=== PATIENT | male | born 1980 | race Two or more races ===

== ENCOUNTER 2020-06-22 16:11 | Emergency (ER) | payer SELFPAY ==
[~2020-06-22] VITALS: Ht 175.3 cm; Wt 100.0 kg
[2020-06-22 16:47] VITALS: BP 166/101
[2020-06-22] MEDS ORDERED: PRED20TA PO (16:52)
[2020-06-22] MEDS ORDERED: ACYC800T PO (16:52)
[2020-06-22] MEDS ORDERED: PEG15DRO4 RIGHTEYE (16:52)
--- NOTE | 2020-06-22 16:52 | PHYS DOC ---
Past Medical History Past Medical History: Hypertension Drug Use: None General Adult EDM: Chief Complaint: Facial weakness HPI: HPI: Patient is a 39 year old male who presents with a 2-day history of right-sided facial numbness periorbital numbness and right-sided facial weakness. Patient denies any weakness in his arms leg. He does complain of mild right ear pain and right-sided occipital headache. Patient denies any fevers, chills, cough, vomiting, diarrhea. Patient says he is having hard time closing his right eye. Review of Systems: Review of Systems: Constitutional: Denies fever or chills. [] Eyes: Denies change in visual acuity. [] HENT: Denies nasal congestion or sore throat. [] Respiratory: Denies cough or shortness of breath. [] Cardiovascular: Denies chest pain or edema. [] GI: Denies abdominal pain, nausea, vomiting, bloody stools or diarrhea. [] : Denies dysuria. [] Musculoskeletal: Denies back pain or joint pain. [] Integument: Denies rash. [] Neurologic: Has a mild right-sided headache and right facial weakness/numbness otherwise no other neurological complaints Endocrine: Denies polyuria or polydipsia. [] Lymphatic: Denies swollen glands. [] Psychiatric: Denies depression or anxiety. [] Heart Score: Risk Factors: Risk Factors: DM, Current or recent (<one month) smoker, HTN, HLP, family history of CAD, obesity. Risk Scores: Score 0 - 3: 2.5% MACE over next 6 weeks - Discharge Home Score 4 - 6: 20.3% MACE over next 6 weeks - Admit for Clinical Observation Score 7 - 10: 72.7% MACE over next 6 weeks - Early Invasive Strategies Physical Exam: PE: Constitutional: Well developed, well nourished, no acute distress, non-toxic appearance. HENT: No trismus, external ears normal Eyes: Conjunctiva clear, EOMI Neck: Normal range of motion, no tenderness, supple, no stridor. Cardiovascular: Regular rate/rhythm, peripheral pulse intact, SWITCH ENGINEER intact Lungs & Thorax: No respiratory distress Abdomen: No distension Skin: Diffuse: Intact, no rash Back: Full ROM Extremities: Normal inspection, no edema Neurologic: Alert and oriented X 3, right-sided facial weakness involving forehead. Decreased incision right side of face motor and sensation intact in all extremities Psychologic: Affect normal, judgement normal, mood normal. EKG: EKG: [] Radiology/Procedures: Radiology/Procedures: [] Course & Med Decision Making: Course & Med Decision Making Pertinent Labs and Imaging studies reviewed. (See chart for details) [] Signs and systems consistent with Jerez's palsy no evidence of stroke. Patient clinically stable. Will place him on steroids and antivirals as well as artificial tears. Dragon Disclaimer: Reginald Disclaimer: This electronic medical record was generated, in whole or in part, using a voice recognition dictation system. Departure Departure Impression: Primary Impression: Jerez's palsy Disposition: HOME, SELF-CARE Condition: STABLE Referrals: NO PCP (PCP) PCP 2-3 DAYS Patient Instructions: Jerez's Palsy Additional Instructions: EMERGENCY DEPARTMENT GENERAL DISCHARGE INSTRUCTIONS Thank you for coming to [facility] Emergency Department (ED) today and trusting us with you care. We trust that you had a positivie experience in our Emergency Department. If you wish to speak to the department management, you may call the Director at [phone]. YOUR FOLLOW UP INSTRUCTIONS ARE FOLLOWS: 1. Do you have a private Doctor? If you do not have a private doctor, please ask for a resource list of physicians or clinics that may be able to assist you with follow up care. 2. The Emergency Physicain has interpreted your x-rays. The X-Ray specialist will also review them. If there is a change in the findings, you will be notified in 48 hours when at all possible. 3. A lab test or culture has been done, your results will be reviewed and you will be notified if you need a change in treatment. ADDITIONAL INSTRUCTIONS AND INFORMATION: 1. Your care today has been supervised by a physician who is specially trained in emergency care. Many problems require more than one evaluation for a complete diagnosis and treatment. We recommend that you schedule your follow up appointment as recommended to ensure complete treatment of you illness or injury. If you are unable to obtain follow up care and continue to have a problem, or if your consition worsens, we recommend that you return to the ED. 2. We are not able to safely determine your condition over the phone nor are we able to give sound medical advice over the phone. For these safety reasons, if you call for medical advice we will ask you to come to the ED for further evaluation. 3. If you have any questions regarding these discharge instructions please call the ED at [phone]. SAFETY INFORMATION: In the interest of safety, wellness, and injury prevention; we encourage you to wear your sealbelt, if you smoke; quite smoking, and we encourage family to use a protective helmet for bicycling and other sporting events that present an increased risk for head injury. IF YOUR SYMPTOMS WORSEN OR NEW SYMPTOMS DEVELOP, OR YOU HAVE CONCERNS ABOUT YOUR CONDITION; OR IF YOUR CONDITION WORSENS WHILE YOU ARE WAITING FOR YOUR FOLLOW UP APPOINTMENT; EITHER CONTACT YOUR PRIMARY CARE DOCTOR, THE PHYSICIAN WHOSE NAME AND NUMBER YOU WERE GIVEN, OR RETURN TO THE ED IMMEDIATELY. Scripts Peg 400/Hypromellose/Glycerin (ARTIFICIAL TEARS DROPS) 15 Ml Drops 1 DROP RIGHTEYE QID for 30 Days, #1 BOTTLE 0 Refills Prov: COLT REED MD 06/22/20 Acyclovir (ACYCLOVIR) 800 Mg Tablet 1 TAB PO 5XDAY, #50 TAB Prov: COLT REED MD 06/22/20 Prednisone (PREDNISONE) 20 Mg Tablet 3 TAB PO DAILY for 10 Days, #30 TAB Prov: COLT REED MD 06/22/20 Justicifation of Admission Dx: Justifications for Admission: Justification of Admission Dx: No COLT REED MD Jun 22, 2020 16:52
== END 2020-06-22 17:00 | disposition home or self-care (01) ==
LOC: ER 16:11
DX: G51.0 Bell's palsy (principal); R53.1 Weakness; R20.0 Anesthesia of skin; H92.01 Otalgia, right ear; I10 Essential (primary) hypertension
CPT/HCPCS: 99283